=== PATIENT | male | born 1955 | race Caucasian/White ===

== ENCOUNTER 2019-04-03 08:09 | Outpatient (CLI) | payer BC ==
[2019-04-03] MEDS ORDERED: ISOVUE-370 76%-LOCM 1 ML ONE (11:09)
--- NOTE | 2019-04-03 11:32 | CT ---
CT Abdomen Pelvis W Con History: CT 20 adenocarcinoma of rectum Comparison: None. Findings: Lung bases are clear. No pericardial effusion. Liver, spleen, pancreas, adrenal glands are unremarkable. No dilated loops of large or small bowel. N o free intraperitoneal gas or fluid. Small bilateral superficial inguinal lymph nodes are present. No rectal mass is appreciated. No pelvi c adenopathy. Kidneys are unremarkable. No abnormal signal mass. No hydronephrosis. The aortic contour is nonaneurysmal. Mild facet arthropathy lower lumbar spine. Small bianka hepatis l ymph nodes. Impression: 1. No appreciated rectal carcinoma. No evidence for metastatic disease within the abdomen or pelvis. 2. No acute inflammatory process within the abdomen or pelvis.
== END 2019-04-03 08:10 | disposition home or self-care (01) ==
LOC: BICCT 08:09
PROVIDERS: ATTEND Internal Medicine
DX: C20 Malignant neoplasm of rectum (principal)
CPT/HCPCS: 74177; Q9966

== ENCOUNTER 2019-04-17 12:43 | Outpatient (CLI) | payer BC ==
[~2019-04-17 12:43] MED LIST: Gadobenate Dimeglumine 529 MG/1 ML (20ML VIAL) ONE; Iopamidol 370 76% 100 ML VIAL ONE
--- NOTE | 2019-04-17 13:56 | CT ---
CT OF THE THORAX WITH IV CONTRAST: 04/17/19 INDICATION: History of rectal cancer, staging CT evaluation of the thorax. COMPARISON: None. FINDINGS: There is a tiny sub 4 mm subpleural pulmonary nodule within the anterolateral left lower lobe on imag e 46 of the axial series. No suspicious pulmonary nodule, lymphadenopathy is evident. There is fat density seen involving the lower strap muscles of the anterior right neck suspicious for an intramuscular lipoma of the lower neck. This is incompletely characterized on the current examina tion. The visualized upper abdomen demonstrates no definite acute abnormality. There is scattered degenerative and osteoarthritic change. No definite acute osseous abnormality is e vident. IMPRESSION: 1. No evidence of metastatic disease within the thorax. 2. Partially imaged fat density mass lesion involving the lower strap muscles of the anterior ne ck. 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 Recommend correlation with clinical examinati on. A nonemergent CT examination of the soft tissues of the neck could be helpful to evaluate for any complexity related to this fat density mass lesion. POS: MARJAN
--- NOTE | 2019-04-17 14:56 | MRI ---
EXAM: MRI of the pelvis without and with contrast HISTORY: Rectal cancer staging COMPARISON: None TECHNIQUE: Multiplanar multisequence MR images were obtained of the pelvis without and with IV contra st. FINDINGS: There is a mass involving the rectum measuring 5.2 cm in length. The mass appears to extend into the muscularis propria but not through the muscularis propria. Invasion of the mesorectal fat: None ; however, the mass extends within the rectum down to the pelvi c floor Distance of mass from the anal verge: 3.7 cm Closest margin to the mesorectal fascia: 0.3 cm Involvement of adjacent organs: None Pelvic lymph nodes: No pelvic or perirectal adenopathy Osseous structures: No marrow signal abnormality Other visualized intrapelvic structures: Unremarkable IMPRESSION: Rectal cancer as above. Staging: T stage: T2 N stage: N0 M stage: Mx
== END 2019-04-17 12:44 | disposition home or self-care (01) ==
LOC: TBSIIMAG 12:43
PROVIDERS: ATTEND Internal Medicine Hematology & Oncology
DX: C20 Malignant neoplasm of rectum (principal)
CPT/HCPCS: 71260; 72197; 82565; A9577; Q9967